=== PATIENT | male | born 1990 | race Hispanic/Latino ===

== ENCOUNTER 2019-01-03 14:13 | Emergency (ER) | payer BC ==
[2019-01-03 16:41] LABS: Anion Gap 14 mmol/L (10-20); BUN (Urea Nitrogen) 22 mg/dL (8.9-20.6); Calc. Creatinine Clearance 0 mL/min (70-130); Calcium 9.6 mg/dL (7.8-10.44); Carbon Dioxide 24 mmol/L (22-29); Chloride 103 mmol/L (98-107); Estimated GFR-MDRD 58; Glucose 92 mg/dL (70-105); Sodium 137 mmol/L (136-145)
--- NOTE | 2019-01-03 16:43 | RAD ---
Chest 2 views HISTORY: Cough. FINDINGS: Cardiac silhouette and pulmonary vasculature are unremarkable. Mediastinum is midline. No c onfluent airspace consolidation, pneumothorax, or pleural fluid. IMPRESSION: No active cardiopulmonary abnormalities are demonstrated.
== END 2019-01-03 17:10 | disposition home or self-care (01) ==
LOC: ERS 14:13
DX: R05 Cough (principal); R55 Syncope and collapse; I10 Essential (primary) hypertension
CPT/HCPCS: 36415; 71046; 80048; 93005

== ENCOUNTER 2019-02-01 10:43 | Outpatient (CLI) | payer BC ==
--- NOTE | 2019-02-01 11:38 | RAD ---
RADIOGRAPH CHEST 2 VIEWS: DATE: 02/01/2019 HISTORY: 29-year-old male with dyspnea FINDINGS: The lungs are clear. The cardiomediastinal silhouette and hilar shadows appear normal. There is no pl eural effusion or pneumothorax. No osseous abnormality is identified. IMPRESSION: Normal
== END 2019-02-01 10:44 | disposition home or self-care (01) ==
LOC: RAD 10:43
PROVIDERS: ATTEND Internal Medicine Critical Care Medicine
DX: R06.00 Dyspnea, unspecified (principal)
CPT/HCPCS: 71046